=== PATIENT | female | born 1950 | race Caucasian/White ===

== ENCOUNTER → 2024-08-16 07:50 | Outpatient (REF) | payer MEDICARE, OTHER, SELFPAY ==
[2024-08-16 10:09] LABS: % Basophils 1.5 % (0-2); % Eosinophils 3.6 % (0-6); % Immature Granulocytes 0.2 % (0-0.5); % Monocytes 7.9 % (1.7-9.3); % Neutrophils 50.8 % (42.2-75.2); Absolute Basophils 0.1 10^3/uL (0-0.2); Absolute Eosinophils 0.2 10^3/uL (0-0.7); Absolute Lymphocytes 1.7 10^3/uL (1.2-3.4); Absolute Monocytes 0.4 10^3/uL (0.1-0.6); Absolute Neutrophils 2.4 10^3/uL (1.4-6.5); Hematocrit 43.6 % (37.0-47.0); Hemoglobin 14.1 g/dL (12.0-16.0); Mean Corp Hgb Conc. 32.3 g/dL (33.0-37.0); Mean Corpuscular Hgb 29.3 pg (27.0-31.0); Mean Corpuscular Volume 90.6 fL (81.0-99.0); Mean Platelet Volume 9.8 fL (7.4-10.4); Nucleated Red Blood Cells % 0 %; Platelet Count 294 10^3/uL (130-400); Red Blood Cell Count 4.81 10^6/uL (4.20-5.40); Red Cell Dist. Width 13.1 % (11.5-14.5); White Blood Cell Count 4.8 10^3/uL (4.8-10.8)
[2024-08-16 11:30] LABS: ALT (SGPT) 17 U/L (0-35); AST (SGOT) 18 U/L (14-36); Alkaline Phosphatase 75 U/L (38-126); Blood Urea Nitrogen 15 mg/dl (7-17); Calcium 9.2 mg/dl (8.4-10.2); Carbon Dioxide 28 mmol/L (22-30); Chloride 105 mmol/L (98-107); Glucose 88 mg/dl (70-99); HDL Cholesterol 42 mg/dl; LDL Cholesterol, Calculated 133 mg/dl; Potassium 4.6 mmol/L (3.5-5.1); Sodium 139 mmol/L (135-145); Total Bilirubin 1.3 mg/dl (0.2-1.3); Total Cholesterol 199 mg/dl (50-199); Total Protein 6.6 g/dl (6.3-8.2); Triglyceride 120 mg/dl (10-149); Very Low Density Lipoprotein 24 mg/dl (0-30); eGFR 59.86
== END ==
LOC: REG 07:50
PROVIDERS: ATTENDING PHYSICIAN Family Medicine
DX: I10 Essential (primary) hypertension (principal); E78.00 Pure hypercholesterolemia, unspecified; M79.10 Myalgia, unspecified site; R79.9 Abnormal finding of blood chemistry, unspecified
CPT/HCPCS: 36415; 80053; 80061; 85025